=== PATIENT | male | born 1950 | race Caucasian/White ===

== ENCOUNTER 2019-06-03 22:19 | Emergency (ER) | payer OTHER, MEDICAID ==
[~2019-06-03] VITALS: Ht 162.6 cm; Wt 72.6 kg
[2019-06-03] MEDS ORDERED: [UNRECOGNIZED DRUG - REMARK] (22:27)
[2019-06-03] MEDS ORDERED: ATOR40TA29 PO (22:27)
[2019-06-03] MEDS ORDERED: METO100T14 PO (22:27)
--- NOTE | 2019-06-03 23:25 | NUR ---
PATIENT WAS MSE BY DR CHAMBERS IN ROOM 04B.
[2019-06-03] MEDS ORDERED: SULFAMETH/TRIMETH 800/160 MG TABLET PO ONE (23:30)
[2019-06-03] MEDS ORDERED: CEphaleXIN 500 MG CAPSULE PO ONE (23:30)
[2019-06-03] MEDS ORDERED: SULFAMETH/TRIMETH 800/160 MG TABLET ONE (23:45)
[2019-06-03] MEDS ORDERED: CEphaleXIN 500 MG CAPSULE ONE (23:45)
--- NOTE | 2019-06-03 23:51 | NUR ---
Patient discharged to home in stable condition. Written and verbal after care instructions given. Patient verbalizes understanding of instructions.
[2019-06-03 23:52] VITALS: BP 161/88
== END 2019-06-03 23:53 | disposition home or self-care (01) ==
LOC: ER 22:19
DX: L02.412 Cutaneous abscess of left axilla (principal); E78.5 Hyperlipidemia, unspecified; Z79.899 Other long term (current) drug therapy
CPT/HCPCS: A4663

== ENCOUNTER 2019-07-11 00:21 | Emergency (ER) | payer OTHER, MEDICAID ==
[~2019-07-11] VITALS: Ht 162.6 cm; Wt 70.3 kg
--- NOTE | 2019-07-11 00:38 | NUR ---
Patient presents to ER with c/o of redness and swelling to Rt lower ext x 2 weeks and redness to Lt axillary area x 3 days. Patient states the building he lives in has fleas and bed bugs, states he was here in this ER for the same and was prescribed antibiotics and it had gotten better but now the boils are coming back. Placed in bed 3, gowned. No acute distress. Awaiting MD [facility].
[2019-07-11] MEDS ORDERED: SULFAMETH/TRIMETH 800/160 MG TABLET ONE (01:00)
[2019-07-11] MEDS ORDERED: CEFTRIAXONE 1 G VIAL ONE (01:00)
[2019-07-11] MEDS ORDERED: SULFAMETH/TRIMETH 800/160 MG TABLET PO ONE (01:00)
[2019-07-11] MEDS ORDERED: CEFTRIAXONE 1 G VIAL IM ONE (01:00)
--- NOTE | 2019-07-11 01:15 | NUR ---
Patient discharged to home in stable conditon. DC instructions and prescriptions given and reviewed with patient, verbalized understanding. Left ER in stable stable condition, ambulated in steady gait.
== END 2019-07-11 01:21 | disposition home or self-care (01) ==
LOC: ER 00:23
DX: L03.114 Cellulitis of left upper limb (principal); L02.414 Cutaneous abscess of left upper limb; I10 Essential (primary) hypertension; E78.5 Hyperlipidemia, unspecified; Z95.1 Presence of aortocoronary bypass graft; Z79.899 Other long term (current) drug therapy
CPT/HCPCS: 96372; 99283; J0696; A4663

== ENCOUNTER 2019-10-07 22:20 | Emergency (ER) | payer OTHER, MEDICAID ==
[~2019-10-07] VITALS: Ht 165.1 cm; Wt 74.8 kg
[~2019-10-07 22:20] MED LIST: ATOR40TA29 PO; METO100T14 PO; [UNRECOGNIZED DRUG - REMARK]
--- NOTE | 2019-10-07 22:25 | NUR ---
Dr. Abreu at bedside for MSE
[2019-10-07] MEDS ORDERED: CEFTRIAXONE 1 G VIAL ONE (22:39)
[2019-10-07] MEDS ORDERED: SULFAMETH/TRIMETH 800/160 MG TABLET ONE (22:40)
[2019-10-07] MEDS ORDERED: SULFAMETH/TRIMETH 800/160 MG TABLET PO ONE (22:45)
[2019-10-07] MEDS ORDERED: CEFTRIAXONE 1 G VIAL IM ONE (22:45)
--- NOTE | 2019-10-07 22:51 | NUR ---
Patient discharged to home in stable condition. Written and verbal after care instructions given. Patient verbalizes understanding of instructions. Stressed follow up or return to ER for worsening s/s. Patient ambulating with steady gait. NAD noted
[2019-10-07 22:54] VITALS: BP 142/73
== END 2019-10-07 22:51 | disposition home or self-care (01) ==
LOC: ER 22:31
DX: L02.411 Cutaneous abscess of right axilla (principal); I10 Essential (primary) hypertension; Z95.1 Presence of aortocoronary bypass graft; E78.5 Hyperlipidemia, unspecified; Z79.899 Other long term (current) drug therapy
CPT/HCPCS: 96372; 99283; J0696; A4663

== ENCOUNTER 2019-10-18 22:22 | Emergency (ER) | payer OTHER, MEDICAID ==
[~2019-10-18] VITALS: Ht 165.1 cm; Wt 72.6 kg
--- NOTE | 2019-10-18 22:35 | NUR ---
PT PRESENTED TO ER AMBULATORY WITH STEADY GAIT. C/O PAIN, SORE ON RIGHT SIDE OF TONGUE X 4 DAYS AA/OX4. ABLE TO SPEAK IN COMPLETE SENTENCES. FOLLOWS COMMANDS NO S/S CARDIOVASCULAR DISTRESS RESPIRATION EVEN AND UNLABORED DENIES N/V/D SR UP FOR SAFETY. BED LOCKED, LOWEST POSITION. INSTRUCTED PT TO CALL NURSE FOR ASSISTANCE MONITORED ACCORDINGLY WILL CONTINUE TO MONITOR
--- NOTE | 2019-10-18 22:46 | NUR ---
DR. SILVA AT BEDSIDE FOR MSE
--- NOTE | 2019-10-18 23:00 | NUR ---
Patient discharged to home in stable condition. Written and verbal after care instructions given. Patient verbalizes understanding of instructions. Stressed follow up or return to ER for worsening s/s. AA/OX4. ABLE TO SPEAK IN COMPLETE SENTENCES RESPIRATIONS EVEN AND UNLABORED NO S/S CARDIOVASCULAR DISTRESS DENIES N/V/D ALL BELONGINGS WITH PT AMBULATORY WITH STEADY GAIT
[2019-10-18 23:03] VITALS: BP 138/80
== END 2019-10-18 23:00 | disposition home or self-care (01) ==
LOC: ER 22:26
DX: K14.0 Glossitis (principal); E78.5 Hyperlipidemia, unspecified; Z95.1 Presence of aortocoronary bypass graft; Z79.899 Other long term (current) drug therapy; R03.0 Elevated blood-pressure reading, without diagnosis of hypertension
CPT/HCPCS: A4663

== ENCOUNTER 2020-03-02 22:27 | Emergency (ER) | payer OTHER, MEDICAID ==
[~2020-03-02] VITALS: Ht 165.1 cm; Wt 74.8 kg
[2020-03-02] MEDS ORDERED: ATOR40TA PO (22:33)
--- NOTE | 2020-03-02 22:37 | NUR ---
Dr. Abreu at bedside for MSE.
[2020-03-02] MEDS ORDERED: NEOMY/BACITRA/POLYMYXIN B OINT UD PACKET TP ONE (22:46)
--- NOTE | 2020-03-02 22:57 | NUR ---
Patient discharged to home in stable condition. Written and verbal after care instructions given. Patient verbalizes understanding of instructions. Stressed follow up or return to ER for worsening s/s. Patient ambulated out of ER with steady gait, no acute signs of distress, VSS, all belongings taken.
[2020-03-02 22:58] VITALS: BP 150/90
[2020-03-02] MEDS ORDERED: CEphaleXIN 500 MG CAPSULE ONE (22:58)
[2020-03-02] MEDS ORDERED: SULFAMETH/TRIMETH 800/160 MG TABLET ONE (22:58)
[2020-03-02] MEDS ORDERED: CEphaleXIN 500 MG CAPSULE PO ONE (23:00)
[2020-03-02] MEDS ORDERED: SULFAMETH/TRIMETH 800/160 MG TABLET PO ONE (23:00)
== END 2020-03-02 22:59 | disposition home or self-care (01) ==
LOC: ER 22:27
DX: L03.115 Cellulitis of right lower limb (principal); S80.861S Insect bite (nonvenomous), right lower leg, sequela; W57.XXXS Bitten or stung by nonvenomous insect and other nonvenomous arthropods, sequela; I10 Essential (primary) hypertension; E78.5 Hyperlipidemia, unspecified; I25.10 Atherosclerotic heart disease of native coronary artery without angina pectoris; Z95.1 Presence of aortocoronary bypass graft; Z79.899 Other long term (current) drug therapy
CPT/HCPCS: A4217; A4663

== ENCOUNTER 2021-02-28 03:39 | Emergency (ER) | payer MEDICARE, OTHER ==
[~2021-02-28] VITALS: Ht 165.1 cm; Wt 72.6 kg
[~2021-02-28 03:39] MED LIST changes: +ATOR40TA PO; -ATOR40TA29 PO
[2021-02-28] MEDS ORDERED: CLOP75TA15 PO (04:09)
[2021-02-28] MEDS ORDERED: METO100T14 PO (04:09)
[2021-02-28] MEDS ORDERED: LISI40TA13 PO (04:09)
[2021-02-28] MEDS ORDERED: SIMV-49 PO (04:09)
[2021-02-28 04:19] VITALS: BP 132/82
--- NOTE | 2021-02-28 04:21 | NUR ---
Patient discharged to home in stable condition. Written and verbal after care instructions given. Patient verbalizes understanding of instructions. Stressed follow up or return to ER for worsening s/s.
== END 2021-02-28 04:27 | disposition home or self-care (01) ==
LOC: ER 04:03
DX: I10 Essential (primary) hypertension (principal); I25.10 Atherosclerotic heart disease of native coronary artery without angina pectoris; E78.5 Hyperlipidemia, unspecified; Z76.0 Encounter for issue of repeat prescription; Z95.1 Presence of aortocoronary bypass graft; Z95.5 Presence of coronary angioplasty implant and graft; Z79.02 Long term (current) use of antithrombotics/antiplatelets; Z79.899 Other long term (current) drug therapy
CPT/HCPCS: A4663